=== PATIENT | female | born 2000 | race Hispanic/Latino ===

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

== ENCOUNTER 2020-05-28 22:10 | Emergency (ER) | payer MEDICAID ==
[~2020-05-28] VITALS: Ht 180.3 cm; Wt 106.0 kg
[~2020-05-28 22:10] MED LIST changes: +LEVEMIR100 UNIT/M SC; +NOVOLOG100 UNIT/M SC
[2020-05-28] MEDS ORDERED: HUMALOG100 MG/ML (22:37)
[2020-05-28] MEDS ORDERED: ANXIETY MED (22:37)
[2020-05-28] MEDS ORDERED: DEPO-PROVER150 MG/M1 IM (22:38)
[2020-05-28 23:01] LABS: HEMATOCRIT 39.3 % (37.0-47.0); HEMOGLOBIN 12.4 g/dl (12.0-16.0); IMMATURE GRANULOCYTES 0.2 % (0.0-5.0); MEAN CELL VOLUME 82.2 fL CALC (80.0-100.0); MEAN CORPUSCULAR HGB 25.9 pG CALC (26.0-32.0); MEAN CORPUSCULAR HGB CONC 31.6 g/dL CAL (32.0-36.0); NEUT# 4.77 thou/uL (2.00-7.15); RED BLOOD COUNT 4.78 mill/uL (4.20-5.60)
[2020-05-28 23:05] LABS: URINE BILIRUBIN - DIPSTICK NEGATIVE (NEGATIVE); URINE BLOOD DIPSTICK MODERATE (NEGATIVE); URINE COLOR YELLOW; URINE GLUCOSE - DIPSTICK 250 mg/dL (NEGATIVE); URINE KETONE TRACE mg/dL (NEGATIVE); URINE LEUK ESTERASE NEGATIVE (NEGATIVE); URINE NITRITE - DIPSTICK NEGATIVE (Negative); URINE PROTEIN - DIPSTICK NEGATIVE (NEG-TRACE); URINE SPECIFIC GRAVITY >=1.030; URINE UROBILINOGEN - DIPSTICK 0.2 E.U./dL (0.2)
[2020-05-28 23:07] LABS: HCG SERUM/URINE (NEG/POS) NEGATIVE (NEGATIVE)
[2020-05-28 23:18] LABS: URINE BACTERIA FEW hpf; URINE SQUAMOUS EPITHELIAL CELL MANY EPI/hpf (0-FEW); URINE WBC 0-2 WBC/hpf (0-5)
[2020-05-28 23:23] LABS: ALBUMIN 4.2 g/dL (3.2-5.0); BILIRUBIN, TOTAL 0.3 mg/dL (0.0-1.4); BUN 14 mg/dL (8-21); BUN/CREATININE RATIO 16 (12-20 (CALC)); CARBON DIOXIDE 24 mmol/l (22-30); CHLORIDE 105 mmol/l (95-108); CREATININE 0.9 mg/dL (0.5-1.0); GFR > 60 ML/MIN (>=60 (CALC)); GFR FOR AFR.AMER. > 60 ML/MIN (>=60 (CALC)); POTASSIUM 4.2 mmol/l (3.5-5.1); TOTAL PROTEIN 7.4 g/dL (6.3-8.2)
[2020-05-28 23:27] LABS: ALKALINE PHOSPHATASE 83 u/l (38-126); ANION GAP 15 (6-22 (CALC)); SGOT/AST 52 u/l (14-36); SODIUM 140 mmol/l (137-146)
[2020-05-28] MEDS ORDERED: CLARITIN10 M1 PO (23:49)
[2020-05-28] MEDS ORDERED: AMOXICILLIN500 MG PO (23:49)
[2020-05-29 00:02] VITALS: BP 126/72
== END 2020-05-29 00:08 | disposition home or self-care (01) ==
LOC: ED 22:10
PROVIDERS: Emergency Medicine
DX: J02.0 Streptococcal pharyngitis (principal); E11.9 Type 2 diabetes mellitus without complications; F41.9 Anxiety disorder, unspecified; D68.0 Von Willebrand disease; Z79.4 Long term (current) use of insulin; Z20.828 Contact with and (suspected) exposure to other viral communicable diseases

== ENCOUNTER 2020-07-09 22:13 | Emergency (ER) | payer MEDICAID ==
[~2020-07-09] VITALS: Ht 180.3 cm; Wt 100.0 kg
[~2020-07-09 22:13] MED LIST changes: +AMOXICILLIN500 MG PO; +ANXIETY MED; +CLARITIN10 M1 PO; +DEPO-PROVER150 MG/M1 IM; +HUMALOG100 MG/ML SC
[2020-07-09] MEDS ORDERED: SERTRALINE25 MG PO (23:36)
[2020-07-09] MEDS ORDERED: KEFLEX500 MG PO (23:43)
[2020-07-09] MEDS ORDERED: TYLENOL # 31 TA1 PO (23:44)
[2020-07-10] VITALS: BP 151/72
== END 2020-07-10 | disposition home or self-care (01) ==
LOC: ED 22:13
DX: K05.319 Chronic periodontitis, localized, unspecified severity (principal); E11.9 Type 2 diabetes mellitus without complications; F41.9 Anxiety disorder, unspecified; D68.0 Von Willebrand disease; Z79.4 Long term (current) use of insulin

== ENCOUNTER 2022-12-15 12:43 | Emergency (ER) | payer MEDICAID ==
[~2022-12-15] VITALS: Ht 180.3 cm; Wt 102.0 kg
[~2022-12-15 12:43] MED LIST changes: +KEFLEX500 MG PO; +SERTRALINE25 MG PO; +TYLENOL # 31 TA1 PO
[2022-12-15 12:55] VITALS: BP 126/90
[2022-12-15 13:00] VITALS: BP 119/88
[2022-12-15 13:21] LABS: URINE BILIRUBIN - DIPSTICK NEGATIVE (NEGATIVE); URINE BLOOD DIPSTICK NEGATIVE (NEGATIVE); URINE COLOR YELLOW; URINE GLUCOSE - DIPSTICK >=1000 mg/dL (NEGATIVE); URINE KETONE TRACE mg/dL (NEGATIVE); URINE LEUK ESTERASE NEGATIVE (NEGATIVE); URINE PH 6.5 (4.5-8.0); URINE PROTEIN - DIPSTICK NEGATIVE (NEG-TRACE)
[2022-12-15 13:25] LABS: URINE NITRITE - DIPSTICK NEGATIVE (Negative)
[2022-12-15] MEDS ORDERED: AMOX/K CLAV875 M1 PO ×2 (14:25→14:32)
[2022-12-15] MEDS ORDERED: ZYRTEC10 MG PO ×2 (14:25→14:32)
[2022-12-15] MEDS ORDERED: ALLERGY RE50 MCG/ACT ×2 (14:25→14:32)
[2022-12-15 14:36] VITALS: BP 119/88
== END 2022-12-15 14:49 | disposition home or self-care (01) ==
LOC: ED 12:43
PROVIDERS: Nurse Practitioner
DX: J32.9 Chronic sinusitis, unspecified (principal); H66.92 Otitis media, unspecified, left ear; E11.9 Type 2 diabetes mellitus without complications; F41.9 Anxiety disorder, unspecified; D68.00 Von Willebrand disease, unspecified; Z79.4 Long term (current) use of insulin; Z20.822 Contact with and (suspected) exposure to COVID-19

== ENCOUNTER 2023-01-31 10:48 | Emergency (ER) | payer MEDICAID ==
[~2023-01-31] VITALS: Ht 180.3 cm; Wt 105.9 kg
[2023-01-31] VITALS (9 sets, daily range): BP systolic 94–125; BP diastolic 56–82
[~2023-01-31 10:48] MED LIST changes: +ALLERGY RE50 MCG/ACT; +AMOX/K CLAV875 M1 PO; +ZYRTEC10 MG PO
[2023-01-31] MEDS ORDERED: METFORMIN HCL1000 MG PO (11:05)
[2023-01-31] MEDS ORDERED: TENORMIN25 MG PO (11:05)
[2023-01-31 11:18] LABS: URINE BILIRUBIN - DIPSTICK NEGATIVE (NEGATIVE); URINE COLOR YELLOW; URINE GLUCOSE - DIPSTICK >=1000 mg/dL (NEGATIVE); URINE KETONE TRACE mg/dL (NEGATIVE); URINE SPECIFIC GRAVITY 1.015
[2023-01-31 11:19] LABS: URINE BLOOD DIPSTICK SMALL (NEGATIVE); URINE LEUK ESTERASE NEGATIVE (NEGATIVE); URINE NITRITE - DIPSTICK NEGATIVE (Negative); URINE PH 5.5 (4.5-8.0); URINE PROTEIN - DIPSTICK NEGATIVE (NEG-TRACE); URINE UROBILINOGEN - DIPSTICK 0.2 E.U./dL (0.2)
[2023-01-31 11:21] LABS: URINE SQUAMOUS EPITHELIAL CELL MODERATE EPI/hpf (0-FEW)
[2023-01-31 12:38] LABS: BASO% 0.3 % (0-3); EOS% 1.6 % (0-8); HEMATOCRIT 42.4 % (37.0-47.0); HEMOGLOBIN 13.3 g/dl (12.0-16.0); LYMPH% 29.5 % (15-41); MEAN CORPUSCULAR HGB 26.7 pG CALC (26.0-32.0); MEAN CORPUSCULAR HGB CONC 31.4 g/dL CAL (32.0-36.0); MONO% 5.3 % (2-13); NEUT# 4.45 thou/uL (2.00-7.15); NEUT% 63.3 % (42-76); RED BLOOD COUNT 4.99 mill/uL (4.20-5.60); RED CELL DISTRI WIDTH 12.3 % (11.5-15.5)
[2023-01-31 12:50] LABS: ALBUMIN 4.3 g/dL (3.2-5.0); ALKALINE PHOSPHATASE 68 u/l (38-126); ANION GAP 15 (6-22 (CALC)); BUN 12 mg/dL (7-17); BUN/CREATININE RATIO 17 (12-20 (CALC)); CARBON DIOXIDE 24 mmol/l (22-30); CHLORIDE 100 mmol/l (95-108); CREATININE 0.7 mg/dL (0.5-1.0); GFR FOR AFR.AMER. > 60 ML/MIN (>=60 (CALC)); GFR OTHER RACES > 60 ML/MIN (>=60 (CALC)); LIPASE 118 u/l (23-300); POTASSIUM 4.5 mmol/l (3.5-5.1); SODIUM 135 mmol/l (137-146); TOTAL PROTEIN 7.6 g/dL (6.3-8.2)
[2023-01-31 12:52] LABS: BILIRUBIN, TOTAL 0.7 mg/dL (0.02-1.3); SGOT/AST 138 u/l (14-36)
[2023-01-31] MEDS ORDERED: FIORICET PO (14:22)
[2023-01-31] MEDS ORDERED: ZOFRAN4 MG/TAB PO (14:22)
== END 2023-01-31 14:27 | disposition home or self-care (01) ==
LOC: ED 10:48
PROVIDERS: Family Medicine; Nurse Practitioner
DX: R11.2 Nausea with vomiting, unspecified (principal); R19.7 Diarrhea, unspecified; R51.9 Headache, unspecified; E11.9 Type 2 diabetes mellitus without complications; F41.9 Anxiety disorder, unspecified; D68.00 Von Willebrand disease, unspecified; Z79.84 Long term (current) use of oral hypoglycemic drugs; Z79.4 Long term (current) use of insulin; Z20.822 Contact with and (suspected) exposure to COVID-19